=== PATIENT | male | born 1940 | race African-American/Black ===

== ENCOUNTER 2017-08-28 07:58 | Day surgery (SDC) | payer MEDICARE, MEDICAID ==
[~2017-08-28] VITALS: Ht 185.4 cm; Wt 131.5 kg
[~2017-08-28 07:58] MED LIST: ASPIRIN LOW DOS81 M2 PO; BUMETANIDE2 MG PO; CATAPRES0.2 MG PO; CYCLOBENZAPR10 MG PO; DICLOFENAC SODI75 MG PO; DICLOFENAC75 MG PO; ENALAPRIL20 MG PO; FLEXERIL OR; FLEXERIL PO; FLEXERIL10 MG PO; FLUARIX QUADRIV1 IN2 IM; FLUARIX QUADRIV1 INJ IM; FLULAVAL IM; FUROSEMIDE40 MG PO; HYDROCHLOROT25 MG PO; KLOR-CON 1010 ME1 PO; LIPITOR80 M1 PO; METFORMIN500 M2 PO; METFORMIN500 MG PO; METOCLOPRAM5 MG PO; METOCLOPRAMIDE H5 MG PO; METOPROL TAR100 M1 PO; METOPROL TAR100 MG PO; NEXIUM40 M1 PO; OMEPRAZOLE10 MG PO; OMEPRAZOLE20 M2 PO; PRILOSEC10 MG PO; PROTONIX40 M2 PO; REGLAN5 MG/ML PO; TIZANIDINE2 MG; TIZANIDINE2 MG PO; TRAVATAN0.0041 OP; VERAPAMIL240 M1 PO; ZOCOR20 M1 PO; ZOCOR20 MG PO
[2017-08-28 11:11] VITALS: BP 135/62
== END 2017-08-28 11:20 | disposition home or self-care (01) ==
LOC: ENDO 07:58 → ORM 16:50 → ENDO 16:50 → ORM 17:25 → ENDO 20:20
PROVIDERS: ATTEND Internal Medicine Gastroenterology
PROC: 0DJD8ZZ Inspection of Lower Intestinal Tract, Via Natural or Artificial Opening Endoscopic (ICD-10-PCS; principal; 2017-08-28)
DX: K59.00 Constipation, unspecified (principal); K57.30 Diverticulosis of large intestine without perforation or abscess without bleeding; K64.4 Residual hemorrhoidal skin tags; K64.8 Other hemorrhoids; K21.9 Gastro-esophageal reflux disease without esophagitis; I10 Essential (primary) hypertension; E11.9 Type 2 diabetes mellitus without complications; I25.10 Atherosclerotic heart disease of native coronary artery without angina pectoris; E78.00 Pure hypercholesterolemia, unspecified; Z86.010 Personal history of colon polyps

== ENCOUNTER 2018-04-25 08:40 | Observation (INO) | payer MEDICARE, MEDICAID ==
[~2018-04-25] VITALS: Ht 185.4 cm; Wt 120.0 kg
[2018-04-25] MEDS ORDERED: RANITIDINE150 MG PO (09:05)
[2018-04-25] MEDS ORDERED: ASPIRIN81 MG PO (09:07)
[2018-04-25 09:49] LABS: HEMATOCRIT 39.4 % (39.0-50.0); HEMOGLOBIN 13.8 g/dl (14.0-18.0); IMMATURE GRANULOCYTES 0.3 % (0.0-5.0); MEAN CELL VOLUME 81.2 fL CALC (80.0-100.0); MEAN CORPUSCULAR HGB 28.5 pG CALC (26.0-32.0); NEUT# 4.73 thou/uL (1.82-7.42); RED BLOOD COUNT 4.85 mill/uL (4.70-6.10); RED CELL DISTRI WIDTH 12.7 % (11.5-15.5)
[2018-04-25 09:54] LABS: ALBUMIN 4.6 g/dL (3.2-5.0); ALKALINE PHOSPHATASE 119 u/l (38-126); BILIRUBIN, TOTAL 0.8 mg/dL (0.0-1.4); BUN 16 mg/dL (8-23); BUN/CREATININE RATIO 15 (12-20 (CALC)); CARBON DIOXIDE 30 mmol/l (22-30); CREATININE 1.1 mg/dL (0.7-1.3); GFR > 60 ML/MIN (>=60 (CALC)); GFR FOR AFR.AMER. > 60 ML/MIN (>=60 (CALC)); LIPASE 96 u/l (23-300); SGOT/AST 26 u/l (19-48); SGPT/ALT 28 u/l (11-66)
[2018-04-25 10:12] LABS: ANION GAP 21 (6-22 (CALC)); CHLORIDE 80 mmol/l (95-108); POTASSIUM 3.1 mmol/l (3.5-5.1); SODIUM 128 mmol/l (137-146)
[2018-04-25 11:08] LABS: URINE BILIRUBIN - DIPSTICK NEGATIVE (NEGATIVE); URINE BLOOD DIPSTICK TRACE-INTACT (NEGATIVE); URINE COLOR YELLOW; URINE GLUCOSE - DIPSTICK NEGATIVE (NEGATIVE); URINE KETONE 15 mg/dL (NEGATIVE); URINE LEUK ESTERASE NEGATIVE (NEGATIVE); URINE NITRITE - DIPSTICK NEGATIVE (Negative); URINE PH 5.5 (4.5-8.0); URINE PROTEIN - DIPSTICK NEGATIVE (NEG-TRACE); URINE SPECIFIC GRAVITY <=1.005; URINE UROBILINOGEN - DIPSTICK 0.2 E.U./dL (0.2)
[2018-04-25 11:09] LABS: URINE CLARITY CLEAR
[2018-04-25 11:29] VITALS: BP 171/84
[2018-04-25 13:47] LABS: ANION GAP 19 (6-22 (CALC)); BUN 14 mg/dL (8-23); BUN/CREATININE RATIO 14 (12-20 (CALC)); CARBON DIOXIDE 31 mmol/l (22-30); CHLORIDE 83 mmol/l (95-108); GFR > 60 ML/MIN (>=60 (CALC)); GFR FOR AFR.AMER. > 60 ML/MIN (>=60 (CALC)); SODIUM 130 mmol/l (137-146)
[2018-04-25 15:34] VITALS: BP 132/54
[2018-04-25 19:41] VITALS: BP 141/81
[2018-04-26] VITALS: BP 146/76
[2018-04-26 04:06] VITALS: BP 160/71
[2018-04-26 04:46] LABS: HEMATOCRIT 39.7 % (39.0-50.0); HEMOGLOBIN 13.6 g/dl (14.0-18.0); IMMATURE GRANULOCYTES 0.4 % (0.0-5.0); MEAN CELL VOLUME 82.4 fL CALC (80.0-100.0); MEAN CORPUSCULAR HGB 28.2 pG CALC (26.0-32.0); MEAN CORPUSCULAR HGB CONC 34.3 g/L CALC (32.0-36.0); NEUT# 5.27 thou/uL (1.82-7.42); RED BLOOD COUNT 4.82 mill/uL (4.70-6.10); RED CELL DISTRI WIDTH 13.1 % (11.5-15.5)
[2018-04-26 05:12] LABS: ALBUMIN 3.9 g/dL (3.2-5.0); ALKALINE PHOSPHATASE 109 u/l (38-126); BILIRUBIN, TOTAL 0.5 mg/dL (0.0-1.4); BUN 7 mg/dL (8-23); BUN/CREATININE RATIO 10 (12-20 (CALC)); CARBON DIOXIDE 31 mmol/l (22-30); CREATININE 0.8 mg/dL (0.7-1.3); GFR > 60 ML/MIN (>=60 (CALC)); GFR FOR AFR.AMER. > 60 ML/MIN (>=60 (CALC)); MAGNESIUM 1.6 mg/dL (1.6-2.3); POTASSIUM 3.2 mmol/l (3.5-5.1); SGOT/AST 24 u/l (19-48); SGPT/ALT 29 u/l (11-66); SODIUM 135 mmol/l (137-146); TOTAL PROTEIN 6.9 g/dL (6.3-8.2)
[2018-04-26 05:14] LABS: ANION GAP 14 (6-22 (CALC)); CHLORIDE 93 mmol/l (95-108)
[2018-04-26 07:18] VITALS: BP 151/59
[2018-04-26 12:00] VITALS: BP 160/76
[2018-04-26 15:15] VITALS: BP 162/81
[2018-04-26 20:00] VITALS: BP 132/75
[2018-04-27] VITALS (7 sets, daily range): BP systolic 141–166; BP diastolic 68–90
[2018-04-28 04:50] VITALS: BP 150/83
[2018-04-28 05:09] LABS: HEMATOCRIT 37.6 % (39.0-50.0); HEMOGLOBIN 12.6 g/dl (14.0-18.0); IMMATURE GRANULOCYTES 0.3 % (0.0-5.0); MEAN CELL VOLUME 85.3 fL CALC (80.0-100.0); MEAN CORPUSCULAR HGB 28.6 pG CALC (26.0-32.0); MEAN CORPUSCULAR HGB CONC 33.5 g/L CALC (32.0-36.0); NEUT# 4.71 thou/uL (1.82-7.42); RED BLOOD COUNT 4.41 mill/uL (4.70-6.10); RED CELL DISTRI WIDTH 13.7 % (11.5-15.5)
[2018-04-28 05:26] LABS: ANION GAP 12 (6-22 (CALC)); BUN 3 mg/dL (8-23); BUN/CREATININE RATIO 4 (12-20 (CALC)); CARBON DIOXIDE 32 mmol/l (22-30); CHLORIDE 97 mmol/l (95-108); CREATININE 0.7 mg/dL (0.7-1.3); GFR > 60 ML/MIN (>=60 (CALC)); GFR FOR AFR.AMER. > 60 ML/MIN (>=60 (CALC)); SODIUM 137 mmol/l (137-146)
[2018-04-28 07:45] VITALS: BP 156/78
[2018-04-28 08:54] VITALS: BP 156/78
== END 2018-04-28 11:27 | disposition home or self-care (01) ==
LOC: ED 08:40 → ED-I 10:24 → ED 10:45 → MS2 10:46
PROVIDERS: Emergency Medicine; ADMIT Internal Medicine Nephrology; ATTEND Internal Medicine Geriatric Medicine
DX: K21.9 Gastro-esophageal reflux disease without esophagitis (principal); E87.1 Hypo-osmolality and hyponatremia; E87.6 Hypokalemia; E11.9 Type 2 diabetes mellitus without complications; I10 Essential (primary) hypertension; I48.0 Paroxysmal atrial fibrillation; K59.09 Other constipation; E78.5 Hyperlipidemia, unspecified; M15.9 Polyosteoarthritis, unspecified; H40.9 Unspecified glaucoma; I25.10 Atherosclerotic heart disease of native coronary artery without angina pectoris; E66.9 Obesity, unspecified; Z68.34 Body mass index [BMI] 34.0-34.9, adult; Z79.84 Long term (current) use of oral hypoglycemic drugs; Z79.899 Other long term (current) drug therapy
CPT/HCPCS: J1650; Q9967; S0164

== ENCOUNTER 2018-09-16 02:38 | Emergency (ER) | payer MEDICARE, MEDICAID ==
[~2018-09-16] VITALS: Ht 185.4 cm; Wt 126.0 kg
[~2018-09-16 02:38] MED LIST changes: +ASPIRIN81 MG PO; +RANITIDINE150 MG PO
[2018-09-16 03:01] LABS: HEMATOCRIT 35.8 % (39.0-50.0); HEMOGLOBIN 11.5 g/dl (14.0-18.0); IMMATURE GRANULOCYTES 0.2 % (0.0-5.0); MEAN CELL VOLUME 89.5 fL CALC (80.0-100.0); MEAN CORPUSCULAR HGB 28.8 pG CALC (26.0-32.0); MEAN CORPUSCULAR HGB CONC 32.1 g/L CALC (32.0-36.0); NEUT# 3.07 thou/uL (1.82-7.42); RED CELL DISTRI WIDTH 13.9 % (11.5-15.5)
[2018-09-16] MEDS ORDERED: ATORVASTATIN CA80 MG PO (03:08)
[2018-09-16] MEDS ORDERED: TIZANIDINE HCL2 M1 PO (03:09)
[2018-09-16 03:20] LABS: ACT PARTIAL THROMBO TIME 28.2 SECONDS (20.0-32.5); PROTHROMBIN TIME 10.5 SECONDS (9.0-12.5)
[2018-09-16 03:44] VITALS: BP 162/62
== END 2018-09-16 03:43 | disposition home or self-care (01) ==
LOC: ED 02:38
PROVIDERS: Family Medicine
DX: R04.0 Epistaxis (principal); E11.9 Type 2 diabetes mellitus without complications; K21.9 Gastro-esophageal reflux disease without esophagitis; M19.90 Unspecified osteoarthritis, unspecified site; Z79.82 Long term (current) use of aspirin

== ENCOUNTER → 2018-10-15 | Outpatient (REF) | payer MEDICARE, MEDICAID ==
[~2018-10-15] MED LIST changes: +ATORVASTATIN CA80 MG PO; +TIZANIDINE HCL2 M1 PO
== END | disposition home or self-care (01) ==
LOC: LAB 09:11
PROVIDERS: ATTEND Nurse Practitioner Family
DX: Z12.5 Encounter for screening for malignant neoplasm of prostate (principal)

== ENCOUNTER 2018-12-17 06:00 | Emergency (ER) | payer MEDICARE, MEDICAID ==
[~2018-12-17] VITALS: Ht 175.3 cm; Wt 121.4 kg
[2018-12-17] MEDS ORDERED: [UNRECOGNIZED DRUG - MIXTURE] PO (06:23)
[2018-12-17 07:05] LABS: IMMATURE GRANULOCYTES 0.4 % (0.0-5.0); MEAN CELL VOLUME 87.3 fL CALC (80.0-100.0); MEAN CORPUSCULAR HGB 27.6 pG CALC (26.0-32.0); MEAN CORPUSCULAR HGB CONC 31.6 g/L CALC (32.0-36.0); NEUT# 5.79 thou/uL (1.82-7.42); RED BLOOD COUNT 3.3 mill/uL (4.70-6.10); RED CELL DISTRI WIDTH 14.3 % (11.5-15.5)
[2018-12-17 07:07] LABS: HEMATOCRIT 28.8 % (39.0-50.0); HEMOGLOBIN 9.1 g/dl (14.0-18.0)
[2018-12-17 07:20] LABS: ALBUMIN 3.9 g/dL (3.2-5.0); ALKALINE PHOSPHATASE 77 u/l (38-126); AMYLASE 42 u/l (30-110); ANION GAP 14 (6-22 (CALC)); BILIRUBIN, TOTAL 0.4 mg/dL (0.0-1.4); BUN 39 mg/dL (8-23); BUN/CREATININE RATIO 44 (12-20 (CALC)); CARBON DIOXIDE 27 mmol/l (22-30); CHLORIDE 104 mmol/l (95-108); CREATININE 0.9 mg/dL (0.7-1.3); GFR > 60 ML/MIN (>=60 (CALC)); GFR FOR AFR.AMER. > 60 ML/MIN (>=60 (CALC)); LIPASE 51 u/l (23-300); SGOT/AST 17 u/l (19-48); SODIUM 142 mmol/l (137-146); TOTAL PROTEIN 6.5 g/dL (6.3-8.2)
[2018-12-17 07:23] LABS: ACT PARTIAL THROMBO TIME 25.3 SECONDS (20.0-32.5); PROTHROMBIN TIME 10.8 SECONDS (9.0-12.5)
[2018-12-17 07:31] LABS: MYOGLOBIN 27 ng/mL (0 - 121)
[2018-12-17 08:41] VITALS: BP 129/58
== END 2018-12-17 09:15 | disposition short-term general hospital (02) ==
LOC: ED 06:00
PROVIDERS: Emergency Medicine
PROC: 2Y41X5Z Packing of Nasal Region using Packing Material (ICD-10-PCS; principal; 2018-12-17)
DX: R04.0 Epistaxis (principal); K92.0 Hematemesis; K92.1 Melena; I10 Essential (primary) hypertension; E11.9 Type 2 diabetes mellitus without complications
CPT/HCPCS: S0164

== ENCOUNTER 2019-05-22 13:12 | Emergency (ER) | payer MEDICARE, MEDICAID ==
[~2019-05-22] VITALS: Ht 175.3 cm; Wt 97.0 kg
[~2019-05-22 13:12] MED LIST changes: +[UNRECOGNIZED DRUG - MIXTURE] PO
[2019-05-22 15:51] VITALS: BP 119/80
== END 2019-05-22 16:03 | disposition home or self-care (01) ==
LOC: ED 13:12
DX: K59.00 Constipation, unspecified (principal); I10 Essential (primary) hypertension; E11.9 Type 2 diabetes mellitus without complications; C14.0 Malignant neoplasm of pharynx, unspecified

== ENCOUNTER 2020-05-06 18:45 | Emergency (ER) | payer MEDICARE, MEDICAID ==
[~2020-05-06] VITALS: Ht 175.3 cm; Wt 79.1 kg
[2020-05-06 19:09] LABS: HEMATOCRIT 30.5 % (39.0-50.0); HEMOGLOBIN 9.7 g/dl (14.0-18.0); IMMATURE GRANULOCYTES 0.5 % (0.0-5.0); MEAN CORPUSCULAR HGB 32.8 pG CALC (26.0-32.0); MEAN CORPUSCULAR HGB CONC 31.8 g/dL CAL (32.0-36.0); NEUT# 5.2 thou/uL (1.82-7.42); RED BLOOD COUNT 2.96 mill/uL (4.70-6.10)
[2020-05-06 19:23] LABS: ALBUMIN 3.8 g/dL (3.2-5.0); ALKALINE PHOSPHATASE 84 u/l (38-126); ANION GAP 13 (6-22 (CALC)); BILIRUBIN, TOTAL 0.4 mg/dL (0.0-1.4); BUN 8 mg/dL (8-23); BUN/CREATININE RATIO 15 (12-20 (CALC)); CARBON DIOXIDE 32 mmol/l (22-30); CHLORIDE 95 mmol/l (95-108); CREATININE 0.5 mg/dL (0.7-1.3); GFR > 60 ML/MIN (>=60 (CALC)); GFR FOR AFR.AMER. > 60 ML/MIN (>=60 (CALC)); POTASSIUM 3.7 mmol/l (3.5-5.1); SODIUM 135 mmol/l (137-146); TOTAL PROTEIN 7.1 g/dL (6.3-8.2)
[2020-05-06 19:34] LABS: ACT PARTIAL THROMBO TIME 29.7 SECONDS (20.0-32.5); INTERNATIONAL NORMALIZED RATIO 1.1 RATIO (0.7-1.3); PROTHROMBIN TIME 10.5 SECONDS (9.0-12.5); SGOT/AST 31 u/l (19-48)
[2020-05-06 20:03] VITALS: BP 118/80
== END 2020-05-06 20:03 | disposition short-term general hospital (02) ==
LOC: ED 18:45
PROVIDERS: Student in an Organized Health Care Education/Training Program
DX: R04.1 Hemorrhage from throat (principal); C14.0 Malignant neoplasm of pharynx, unspecified; I10 Essential (primary) hypertension; E11.9 Type 2 diabetes mellitus without complications; K21.9 Gastro-esophageal reflux disease without esophagitis; Z79.84 Long term (current) use of oral hypoglycemic drugs; Z92.21 Personal history of antineoplastic chemotherapy

== ENCOUNTER 2020-12-03 21:09 | Emergency (ER) | payer MEDICARE, MEDICAID ==
[2020-12-03 22:22] LABS: HEMATOCRIT 30.2 % (39.0-50.0); HEMOGLOBIN 9.4 g/dl (14.0-18.0); IMMATURE GRANULOCYTES 0.7 % (0.0-5.0); MEAN CORPUSCULAR HGB 27.3 pG CALC (26.0-32.0); MEAN CORPUSCULAR HGB CONC 31.1 g/dL CAL (32.0-36.0); NEUT# 12.15 thou/uL (1.82-7.42); RED BLOOD COUNT 3.44 mill/uL (4.70-6.10); RED CELL DISTRI WIDTH 17.9 % (11.5-15.5)
[2020-12-03 22:35] LABS: MEAN CELL VOLUME 87.8 fL CALC (80.0-100.0)
[2020-12-03 22:45] LABS: ALBUMIN 3.4 g/dL (3.2-5.0); ALKALINE PHOSPHATASE 74 u/l (38-126); BILIRUBIN, TOTAL 0.5 mg/dL (0.0-1.4); BUN 12 mg/dL (8-23); BUN/CREATININE RATIO 22 (12-20 (CALC)); CHLORIDE 97 mmol/l (95-108); CREATININE 0.5 mg/dL (0.7-1.3); GFR > 60 ML/MIN (>=60 (CALC)); GFR FOR AFR.AMER. > 60 ML/MIN (>=60 (CALC)); SGOT/AST 32 u/l (19-48); SODIUM 130 mmol/l (137-146); TOTAL PROTEIN 6.8 g/dL (6.3-8.2)
[2020-12-03 22:46] LABS: ANION GAP 13 (6-22 (CALC)); CARBON DIOXIDE 25 mmol/l (22-30); POTASSIUM 4.8 mmol/l (3.5-5.1)
[2020-12-04 01:38] VITALS: BP 116/60
== END 2020-12-04 01:39 | disposition short-term general hospital (02) ==
LOC: ED 21:09
PROVIDERS: Emergency Medicine
DX: R04.1 Hemorrhage from throat (principal); C14.0 Malignant neoplasm of pharynx, unspecified; C34.11 Malignant neoplasm of upper lobe, right bronchus or lung; J18.9 Pneumonia, unspecified organism; I10 Essential (primary) hypertension; E11.9 Type 2 diabetes mellitus without complications; K21.9 Gastro-esophageal reflux disease without esophagitis; Z79.84 Long term (current) use of oral hypoglycemic drugs; Z92.21 Personal history of antineoplastic chemotherapy
CPT/HCPCS: Q9967